=== PATIENT | female | born 1955 | race Caucasian/White ===

== ENCOUNTER 2021-02-13 14:41 | Outpatient (REF) | payer MEDICARE, SELFPAY ==
[2021-02-13 18:38] LABS: MANUAL DIFF FLAG NO
[2021-02-13 18:39] LABS: Basophils Percent Auto 0.3 % (0-2); Eosinophils Absolute Auto 0.1 X10*3/uL (0.0-0.4); Eosinophils Percent Auto 0.9 % (0-4); Imm Gran Abs Auto 0.03 X10*3/uL (0.00-0.03); Imm Gran Pct Auto 0.3 % (0.0-0.4); Lymphocytes Absolute Auto 2.8 X10*3/uL (1.2-4.9); Lymphocytes Percent Auto 31.9 % (20-40); Mean Corpuscular HGB Conc 35.1 g/dl (31.0-35.0); Mean Corpuscular Hemoglobin 38.2 pg (27.0-33.0); Mean Corpuscular Volume 108.8 fL (80-98); Mean Platelet Volume 8.9 fL (9.4-12.3); Monocytes Absolute Auto 0.4 X10*3/uL (0.1-1.2); Neutrophils Absolute Auto 5.4 X10*3/uL (2.0-8.3); Neutrophils Percent Auto 61.6 % (45-73); Platelet Count 376 X10*3/uL (160-400); Red Cell Distribution Width 12.4 % (11.0-16.0); White Blood Count 8.8 X10*3/uL (4.8-10.8)
[2021-02-13 19:03] LABS: Alanine Aminotransferase 19 U/L (0-31); Albumin Level 4.2 g/dL (3.5-5.0); Alkaline Phosphatase 106 U/L (39-117); Anion Gap 15 (12-20); Aspartate Amino Transferase 18 U/L (5-31); Bilirubin Total 0.4 mg/dL (0.0-1.0); Blood Urea Nitrogen 10 mg/dL (9-16); Calcium 9.1 mg/dL (8.4-10.2); Carbon Dioxide 22 mmol/L (22-29); Chloride 105 mmol/L (96-108); Cholesterol 205 mg/dL; Estimated Glomerular Filt Rate > 60; Glucose Random 93 mg/dL (60-115); HDL Cholesterol 71 mg/dL; LDL Cholesterol Calculated 108 mg/dl; Potassium 4.3 mmol/L (3.3-5.1); Sodium 138 mmol/L (135-145); Total Protein 6.9 g/dL (6.5-8.0); Triglycerides 130 mg/dL
== END 2021-02-13 14:42 | disposition home or self-care (01) ==
LOC: HO.MANLDS 14:41
PROVIDERS: PCP Internal Medicine; Visit Provider Physician Assistant
DX: I10 Essential (primary) hypertension (principal)
CPT/HCPCS: 36415; 80053; 80061; 85025

== ENCOUNTER 2021-09-19 09:53 | Outpatient (REF) | payer MEDICARE, SELFPAY ==
[2021-09-19 10:46] LABS: COVID-19 Test Negative (Negative); IDNOW Serial# 16C4AD1C
== END 2021-09-19 09:54 | disposition home or self-care (01) ==
LOC: HO.LAB 09:53
PROVIDERS: Visit Provider Internal Medicine
DX: Z20.822 Contact with and (suspected) exposure to COVID-19 (principal)
CPT/HCPCS: 36415; 87635; C9803

== ENCOUNTER 2023-03-29 15:11 | Outpatient (REF) | payer MEDICARE, SELFPAY ==
[2023-03-29 18:51] LABS: MANUAL DIFF FLAG NO
[2023-03-29 18:54] LABS: Basophils Percent Auto 0.6 % (0-2); Eosinophils Percent Auto 0.6 % (0-4); Hematocrit 41.1 % (37.0-47.0); Hemoglobin 14.2 g/dl (12.0-16.0); Imm Gran Abs Auto 0.02 X10*3/uL (0.00-0.03); Imm Gran Pct Auto 0.4 % (0.0-0.4); Lymphocytes Absolute Auto 1.8 X10*3/uL (1.2-4.9); Lymphocytes Percent Auto 34.9 % (20-40); Mean Corpuscular HGB Conc 34.5 g/dl (31.0-35.0); Mean Corpuscular Hemoglobin 38.2 pg (27.0-33.0); Mean Platelet Volume 9.3 fL (9.4-12.3); Monocytes Absolute Auto 0.4 X10*3/uL (0.1-1.2); Monocytes Percent Auto 8.2 % (2-11); Neutrophils Absolute Auto 2.9 x10*3/uL (2.0-8.3); Neutrophils Percent Auto 55.3 % (45-73); Platelet Count 268 X10*3/uL (160-400); Red Blood Count 3.72 X10*6/uL (4.20-5.50); Red Cell Distribution Width 11.9 % (11.0-16.0); White Blood Count 5.3 X10*3/uL (4.8-10.8)
[2023-03-29 18:55] LABS: Mean Corpuscular Volume 110.5 fL (80.0-98.0)
[2023-03-29 19:02] LABS: Estimated Average Glucose 94 mg/dL; Hemoglobin A1c % 4.9 %
[2023-03-29 19:18] LABS: Alanine Aminotransferase 20 U/L (0-31); Albumin Level 4.1 g/dL (3.5-5.0); Alkaline Phosphatase 82 U/L (39-117); Anion Gap 15 (12-20); Aspartate Amino Transferase 24 U/L (5-31); Bilirubin Total 0.6 mg/dL (0.0-1.0); Blood Urea Nitrogen 12 mg/dL (9-16); Calcium 9.7 mg/dL (8.4-10.2); Carbon Dioxide 23 mmol/L (22-29); Chloride 106 mmol/L (96-108); Estimated Glomerular Filt Rate > 60; Glucose Random 89 mg/dL (60-115); Iron 133 mcg/dL (30-160); Percent Iron Saturation 51 % (15-50); Potassium 4.3 mmol/L (3.3-5.1); Sodium 140 mmol/L (135-145); Total Iron Binding Capacity 262 mcg/dL (228-428); Total Protein 6.9 g/dL (6.5-8.0); Unsaturated Iron Binding 129 ug/dL
[2023-03-29 19:35] LABS: Ferritin 117 ng/mL (10-250)
== END 2023-03-29 15:12 | disposition home or self-care (01) ==
LOC: HO.MANLDS 15:11
PROVIDERS: Visit Provider Physician Assistant
DX: R73.01 Impaired fasting glucose (principal); E61.1 Iron deficiency
CPT/HCPCS: 36415; 80053; 82728; 83036; 83540; 85025

== ENCOUNTER 2024-05-19 14:19 | Outpatient (REF) | payer OTHER, SELFPAY ==
[2024-05-19 17:56] LABS: MANUAL DIFF FLAG NO
[2024-05-19 18:05] LABS: Basophils Percent Auto 0.4 % (0-2); Eosinophils Absolute Auto 0.1 X10*3/uL (0.0-0.4); Eosinophils Percent Auto 1.2 % (0-4); Hematocrit 42.4 % (37.0-47.0); Hemoglobin 15.1 g/dl (12.0-16.0); Imm Gran Abs Auto 0.02 X10*3/uL (0.00-0.03); Imm Gran Pct Auto 0.3 % (0.0-0.4); Lymphocytes Percent Auto 29.5 % (20-40); Mean Corpuscular HGB Conc 35.6 g/dl (31.0-35.0); Mean Corpuscular Hemoglobin 38.1 pg (27.0-33.0); Mean Corpuscular Volume 107.1 fL (80.0-98.0); Mean Platelet Volume 9.3 fL (9.4-12.3); Monocytes Absolute Auto 0.4 X10*3/uL (0.1-1.2); Monocytes Percent Auto 6.6 % (2-11); Neutrophils Absolute Auto 4.2 x10*3/uL (2.0-8.3); Platelet Count 281 X10*3/uL (160-400); Red Blood Count 3.96 X10*6/uL (4.20-5.50); Red Cell Distribution Width 11.4 % (11.0-16.0); White Blood Count 6.7 X10*3/uL (4.8-10.8)
[2024-05-19 18:10] LABS: INTERNATIONAL NORM RATIO 0.8 (0.9-1.1); Prothrombin Time 9.6 SEC (11.1-13.3)
[2024-05-19 18:12] LABS: Partial Thromboplastin Time 29.2 SEC (26.0-36.8)
[2024-05-19 18:25] LABS: Alanine Aminotransferase 33 U/L (0-31); Albumin Level 4.6 g/dL (3.5-5.0); Alkaline Phosphatase 79 U/L (39-117); Anion Gap 14 (12-20); Aspartate Amino Transferase 34 U/L (5-31); Bilirubin Total 0.5 mg/dL (0.0-1.0); Blood Urea Nitrogen 12 mg/dL (9-16); Carbon Dioxide 26 mmol/L (22-29); Chloride 101 mmol/L (96-108); Estimated Glomerular Filt Rate > 60; Glucose Random 95 mg/dL (60-115); Iron 132 mcg/dL (30-160); Percent Iron Saturation 48 % (15-50); Potassium 3.6 mmol/L (3.3-5.1); Sodium 137 mmol/L (135-145); Total Iron Binding Capacity 273 mcg/dL (228-428); Total Protein 7.7 g/dL (6.5-8.0); Unsaturated Iron Binding 141 ug/dL
[2024-05-19 18:42] LABS: Ferritin 169 ng/mL (10-250); Thyroid Stimulating Hormone 3.04 uIU/mL (0.32-4.0)
[2024-05-19 18:54] LABS: Folate 14.1 ng/mL (> or = 4.0); Vitamin B12 666 pg/mL (200-900)
[2024-05-20 06:06] LABS: Parathyroid Hormone Intact 62.1 pg/mL (8.7-77.1)
[2024-05-20 06:53] LABS: Estimated Average Glucose 94 mg/dL; Hemoglobin A1c % 4.9 % (<6.0)
== END 2024-05-19 14:20 | disposition home or self-care (01) ==
LOC: HO.MANLDS 14:19
PROVIDERS: Visit Provider Physician Assistant
DX: R73.01 Impaired fasting glucose (principal); Z78.9 Other specified health status; E61.1 Iron deficiency; M85.80 Other specified disorders of bone density and structure, unspecified site; R53.83 Other fatigue
CPT/HCPCS: 36415; 80053; 82306; 82607; 82728; 82746; 83036; 83540; 83970; 84439; 84443; 85025; 85610; 85730

== ENCOUNTER 2025-08-30 14:42 | Outpatient (REF) | payer OTHER, SELFPAY ==
--- OUTSIDE RECORDS SUMMARY | 2025-08-30 18:01 | XMS_ITS | Encounter Summary ---
Author Organization [facility] Address [address] [address] Phone Care Team Providers Care Leasing Coordinator Name Role Phone Rusty Lutz DO Primary Care Provider Encounter Details Date Type Department Care Team (Late st Contact Info) Description 03/03/2018 Procedure Pass [facility], [address] [address] Social History Tobacco Use Types Packs/Day Years Used Date Smoking Tobacco: Never Assessed Comments Unknown Sex and Gender Information Value Date Recorded Sex Assigned at Not on file Legal Sex Female 9:52 PM EDT Gender Identity Not on file Sexual Orientation Not on file documented as of this encounter Plan of Treatment Not on file documented as of this encounter Visit Diagnoses Not on filedocumented in this encounter Additional Health Concerns Infection Onset Date Last Indicated Resolved Time CoV-Risk 04/29/2020 04/30/2020 04/30/2020 10:3 8 AM EDT CoV-Presumed 04/30/2020 04/30/2020 05/20/2020 1:22 AM EDT documented as of this encounter Care Teams Leasing Coordinator Relationship Specialty Start Date End Date Rusty Lutz DO PCP - General Internal Medicine 02/28/18 documented as of this encounter Additional Source Comments The information contained in this document represents components of the legal health record. It is not the complete legal health record.[facility]
--- OUTSIDE RECORDS SUMMARY | 2025-08-30 18:01 | XMS_ITS | Encounter Summary ---
Author Organization [facility] Address [address] [address] Phone Care Team Providers Care Log Deckman Name Role Phone Bolivar Rusty Olsen Primary Care Provider [phone] Encounter Details Date Type Department Care Team (Late st Contact Info) Description 05/06/2023 Procedure Pass [facility], [facility] Scan - [address] [address] Social History Tobacco Use Types Packs/Day Years Used Date Smoking Tobacco: Every Day Cigarettes Smokeless Tobacco: Never Alcohol Use Standard Drinks/Week Comments Yes 5 (1 standard drink = 0.6 oz pur e alcohol) Education Answer Date Recorded Are you interested in more education? Not on rachell e 01/25/2023 Are you concerned about learning? Not on file 01/25/2023 No 01/25/2023 No 01/25/2023 Digital Access Answer Date Recorded No 02/23/2023 No 02/23/2023 Reliable internet access at home? Not on file 02/23/2023 Device with a working camera? Not on file Intimate Partner Violence Answer Date R ecorded Are you denied basic needs s uch as food, clothing, or medical care? No 05/06/2023 In the past 12 months have y ou been in a relationship with a person who hurts, threatens, or tries to control you? No 05/06/2023 Are you denied basic needs s uch as food, clothing, or medical care? No 05/06/2023 In the past 12 months have y ou been in a relationship with a person who hurts, threatens, or tries to control you? No 05/06/2023 Comments Unknown Sex and Gender Information Value Date Recorded Sex Assigned at Not on file Legal Sex Female 9:52 PM EDT Gender Identity Not on file Sexual Orientation Not on file documented as of this encounter Functional Status * Calculated C-SSRS Risk Score (Lifetime/Recent) Answer Date of Assessment Author No Risk Indicated 05/06/2023 3:31 PM EDT Holly Abad RN * [place] Suicide Severity Rating Scale (Screener/Recent Self-Report) Question Answer Date of Assessment Author 1. Wish to be (Past 1 Month) No 05/06/2023 3:31 PM EDT Holly Abad RN 2. Non-Specific Active Suici monica Thoughts (Past 1 Month) No 05/06/2023 3:31 PM EDT Lidya Abad cia, RN 6. Suicidal Behavior (Lifetime) No 3:31 PM EDT Holly Abad RN documented as of this encounter Plan of Treatment Not on file documented as of this encounter Visit Diagnoses Not on filedocumented in this encounter Care Teams Log Deckman Relationship Specialty Start Date End Date Rusty Lutz DO [email or web address] PCP - General Internal Medicine 02/28/18 documented as of this encounter Additional Source Comments The information contained in this document represents components of the legal health record. It is not the complete legal health record.[facility]
--- OUTSIDE RECORDS SUMMARY | 2025-08-30 18:01 | XMS_ITS | Encounter Summary ---
Author Organization [facility] Address [address] [address] Phone Care Team Providers Care Building Service Worker Name Role Phone Rusty Lutz DO Primary Care Provider [phone] Encounter Details Date Type Department Care Team (Late st Contact Info) Description 04/29/2020 Procedure Pass [facility], Ct Scan - [address] [address] Social History Tobacco Use Types Packs/Day Years Used Date Smoking Tobacco: Every Day Cigarettes Smokeless Tobacco: Never Alcohol Use Standard Drinks/Week Comments Yes 5 (1 standard drink = 0.6 oz pur e alcohol) Comments Unknown Sex and Gender Information Value [...] documented as of this encounter Care Teams Building Service Worker Relationship Specialty Start Date End Date Rusty Lutz DO PCP - General Internal Medicine 02/28/18 documented as of this encounter Additional Source Comments The information contained in this document represents components of the legal health record. It is not the complete legal health record.[facility]
--- OUTSIDE RECORDS SUMMARY | 2025-08-30 18:01 | XMS_ITS | Encounter Summary ---
Author Organization [facility] Address [address] [facility] [address] [place] [id number] Phone Care Team Providers Care Timekeeping Supervisor Name Role Phone Rusty Lutz DO Primary Care Provider [phone] Encounter Details Date Type Department Care Team (Late st Contact Info) Description 03/03/2018 Ancillary Orders Virtual Department [address] [place] [address] Aylin Wellington, ANDREW Crenshaw. [address]. [address] [place] [address] [email or web address] Other specified joint disorders, right hip Social History Tobacco Use Types Packs/Day Years Used Date Smoking Tobacco: Never Assessed Comments Unknown Sex and Gender Information Value Date Recorded Sex Assigned at Not on file Legal Sex Female 9:52 PM EDT Gender Identity Not on file Sexual Orientation Not on file documented as of this encounter Plan of Treatment Not on file documented as of this encounter Results * MRI HIP WITH AND WITHOUT CONTRAST (RIGHT) (03/29/2018 3:36 PM EDT) Anatomical Region Laterality Modality Hip Right Magnetic Resonan ce 03/30/2018 9:40 PM EDT Impressions 03/31/2018 1:41 PM EDT Palpable lump probably represents a focal area of fat necrosis and much less likely an atypical lipoma or liposarcoma. Recommend follow up in 6 months. [id number] Edited by: Tamara Mckeon on 03/31/2018 1:35 PM Narrative 03/31/2018 1:41 PM EDT HISTORY: Patient feels lump in soft tissues near posterolateral right hip x 6 months. Not painful. See skin marker. She has numbness in the right groin area which is not contiguous with the location of the mass. No cancer history. No prior surgery in this region. No known trauma. COMPARISON: None. CORRELATION: None. TECHNIQUE: Multiplanar imaging performed without and with gadolinium. A marker was placed at the site of the palpable lump. FINDINGS: In the soft tissues posterior to the right greater trochanter, there is a bilobed homogeneous fat-containing lesion which has a thin peripheral dark signal rim. It has very dark signal on the STIR sequences and is non enhancing. This probably represents an area of focal fat necrosis and corresponds with the marker placed at the palpable site. Minimal right acetabular spurring with subchondral cystic changes. Mild hip joint space narrowing as well. No joint effusion. Enthesopathy of the greater trochanter at the gluteus minimus attachment with minor edema in the enthesophyte. No prominent trochanteric bursitis. No evidence of an acute fracture, stress-related change, or avascular necrosis. Multiple very dark T2 signal lesions within the uterus compatible with fibroids measuring up to 2.0 cm. Study not tailored for evaluation of uterine and adnexal structures. Trace free fluid in the pelvis. No pelvic lymphadenopathy. Procedure Note Evan Perez MD - 03/31/2018 HISTORY: Patient feels lump in soft tissues near posterolateral right hipx 6 months. Not painful. See skin marker. She has numbness in the rightgroin area which is not contiguous with the location of the mass. Nocancer history. No prior surgery in this region. No known trauma. COMPARISON: None. CORRELATION: None. TECHNIQUE: Multiplanar imaging performed without and with gadolinium. Amarker was placed at the site of the palpable lump. FINDINGS: In the soft tissues posterior to the right greater trochanter, there is abilobed homogeneous fat-containing lesion which has a thin peripheral darksignal rim. It has very dark signal on the STIR sequences and is nonenhancing. This probably represents an area of focal fat necrosis andcorresponds with the marker placed at the palpable site. Minimal right acetabular spurring with subchondral cystic changes. Mildhip joint space narrowing as well. No joint effusion. Enthesopathy ofthe greater trochanter at the gluteus minimus attachment with minor edemain the enthesophyte. No prominent trochanteric bursitis. No evidence ofan acute fracture, stress-related change, or avascular necrosis. Multiple very dark T2 signal lesions within the uterus compatible withfibroids measuring up to 2.0 cm. Study not tailored for evaluation ofuterine and adnexal structures. Trace free fluid in the pelvis. Nopelvic lymphadenopathy. IMPRESSION: Palpable lump probably represents a focal area of fat necrosis and muchless likely an atypical lipoma or liposarcoma. Recommend follow up in 6months. [id number] Edited by: Tamara Mckeon on 03/31/2018 1:35 PM December Eliz MORALES IMG MR EXTREMITY Final Resul t documented in this encounter Visit Diagnoses Diagnosis Other specified joint disorders, right hip Other specified joint disorders, right hip documented in this encounter Additional Health Concerns Infection Onset Date Last Indicated Resolved Time CoV-Risk 04/29/2020 04/30/2020 04/30/2020 10:3 8 AM EDT CoV-Presumed 04/30/2020 04/30/2020 05/20/2020 1:22 AM EDT documented as of this encounter Care Teams Timekeeping Supervisor Relationship Specialty Start Date End Date Rusty Lutz DO [email or web address] PCP - General Internal Medicine 02/28/18 documented as of this encounter Additional Source Comments The information contained in this document represents components of the legal health record. It is not the complete legal health record.[facility]
--- OUTSIDE RECORDS SUMMARY | 2025-08-30 18:01 | XMS_ITS | Encounter Summary ---
Author Organization [facility] Address [address] [place] [id number] Phone Care Team Providers Care Evidence Custodian Name Role Phone Rusty Lutz DO Primary Care Provider [phone] Encounter Details Date Type Department Care Team (Late st Contact Info) Description 03/25/2019 Transcribe Orders Virtual Department [address] [place] [address] Aylin Wellington PA-C [address] [place] [address] [email or web address] Persistent cough Social History Tobacco Use Types Packs/Day Years Used Date Smoking Tobacco: Never Assessed Comments Unknown Sex and Gender Information Value Date Recorded Sex Assigned at Not on file Legal Sex Female 9:52 PM EDT Gender Identity Not on file Sexual Orientation Not on file documented as of this encounter Plan of Treatment Not on file documented as of this encounter Visit Diagnoses Diagnosis Persistent cough documented in this encounter Additional Health Concerns Infection Onset Date Last Indicated Resolved Time CoV-Risk 04/29/2020 04/30/2020 04/30/2020 10:3 8 AM EDT CoV-Presumed 04/30/2020 04/30/2020 05/20/2020 1:22 AM EDT documented as of this encounter Care Teams Evidence Custodian Relationship Specialty Start Date End Date Rusty Lutz DO [email or web address] PCP - General Internal Medicine 02/28/18 documented as of this encounter Additional Source Comments The information contained in this document represents components of the legal health record. It is not the complete legal health record.[facility]
--- OUTSIDE RECORDS SUMMARY | 2025-08-30 18:01 | XMS_ITS | Data Portability ---
Author Organization [facility], Telehealth Patient Home Address [address] [place] [address] Assessment Encounter Date Assessment Date Assessment LastModified by Organization Details LastModified Time 05/12/2025 05/12/2025 Patient presented for medication refill. Patient tolerating medication well at current dose without adverse effects. Refilled as below. Discussed plan with patient, who expressed understanding . Follow up as noted below. [email or web address] Not available 05/12/2025 14:04:01 Plan of Treatment Reminders Order Date Submit Date Provider Last Modified By Organization Details Last Modified Time Details Appointments None recorded. Lab iron + TIBC + ferritin, serum 2024 025 [facility], [address] [place] [address], [address], 14:19:13 CBC w/ auto diff 2024 025 [facility], [address] [place] [address], [address], 5 14:19:13 CMP, serum or plasma 2024 025 [facility], [address] [place] [address], [address], 5 14:19:13 lipid panel, serum 2024 025 [facility], [address] [place] [address], [address], 5 14:19:13 iron + TIBC + ferritin, serum [id number] [facility], [address] [place] [address], [address], 4 14:01:10 PT/PTT, plasma 2023 [facility], [address] [place] [address], [address], 4 14:01:10 PT/INR 2023 [facility], [address] [place] [address], [address], 4 14:01:10 vitamin B12 + folate, serum or blood 2023 [facility], [address] [place] [address], [address], 4 14:01:10 vitamin D, 25-hydroxy , total, serum 2023 [facility], [address] [place] [address], [address], 4 14:01:10 PTH (parathyro id hormone), intact + calcium, serum or plasma 2023 024 [facility], [address] [place] [address], [address], 4 14:01:11 TSH + free T4, serum 2023 024 [facility], [address] [place] [address], [address], 4 14:21:14 hemoglobin A1c, QN, blood 2023 [facility], [address] [place] [address], [address], 4 11:25:11 CMP, serum or plasma 2023 024 [facility], [address] [place] [address], [address], 4 14:01:10 CBC w/ auto diff 2023 024 [facility], [address] [place] [address], [address], 4 14:01:10 hemoglobin A1c, QN, blood 2022 023 [facility], [address] [place] [address], [address], 3 11:32:50 CMP, serum or plasma 2022 023 [facility], [address] [place] [address], [address], 3 11:32:50 iron + TIBC + ferritin, serum 2022 023 [email or web address] 10 [facility], [address] [place] [address], [address], 3 08:02:43 CBC w/ auto diff 2022 023 [facility], [address] [place] [address], [address], 3 11:32:50 HbA1c (hemoglobi n A1c), blood 2021 022 [facility], [address] [place] [address], [address], 2 14:50:46 CMP, serum or plasma 2021 022 [email or web address] 10 [facility], [address] [place] [address], [address], 2 11:35:37 lipid panel, serum 2021 022 [facility], [address] [facility], [place], [address], 2 14:50:45 CBC w/ auto diff 2021 022 [facility], [address] [facility], [place], [address], 2 14:50:45 Referral neurologis t referral 2022 023 [email or web address] Hayes MD, [address] [facility] [address] [address], [place], [address], 3 15:44:17 Procedures None recorded. Surgeries None recorded. Imaging MR, angiogram, head, w/o contrast - needs recheck her aneurysm; open MRI 2023 024 [email or web address] Not available 4 08:35:10 MR, angiogram, brain, w/ contrast - OPEN 2022 023 [email or web address] Not available 3 08:03:24 Medication Orders ibuprofen 600 mg tablet 2024 025 [facility]/Pharmacy #2024, [address] [place], [address], 5 14:08:22 Tiadylt ER 180 mg capsule,ex tended release 2024 025 [facility]/Pharmacy #2024, [address] [place], [address], 5 14:08:22 mirtazapin e 7.5 mg tablet 2023 024 [facility]/Pharmacy #2024, [address] [place], [address], 5 14:05:44 escitalopr am 5 mg tablet 2023 024 [email or web address] [facility]2024, [address] [place], [address], 14:40:23 citalopram 40 mg tablet 2022 023 [email or web address] [facility], [address] [place], [address], 13:53:01 baclofen 5 mg tablet 2021 022 [email or web address] [facility]2024, [address] [place], [address], 13:30:24 Patient TargetsNo targets recorded. Patient Instructions Encounter Date Encounter Id Patient Instructions Last Modified By Organization Details Last Modified Time 04/27/2022 [id number] pulse oximetry* [email or web address] Not available 04/27/2022 14:42:47 Reason for Referral Neurologist Referral for Tra umatic brain injury MRA ordered; hospital report attached and will be faxed separately Referring Physician: Karyn Cano, Internal Medicine, Encounter Date: 05/21/2023 Results Created Date Observation Date Name Description Value Unit Range Abnormal Flag Note LastModifiedBy Organization Detail LastModifiedTime 04/27/2004/27/2022 pulse oxime try* Result 93 Not Available [facility] [address] [facility] [address], [place], [address], 04/27/2022 08:21:14 06/30/20 24 06/30/2024 MR, angio gram, head, w/o contr ast No observ ation record ed. [email or web address] [address], [address], 07/01/2024 15:05:57 Result Notes None recorded. Problems Name Problem SNOMED Code Status Onset Date Resolution Date Notes Provider Name and Address Organization Details Recorded Time Osteopamy ia 453927733 Active 2017 Not Available [facility] 13:48:36 Emre molina hypertamy torres 58858730 Active 2017 Not Available [facility] 1 13:48:36 Iron deficien cy 19145287 Active 2017 sever- requiring transfusi ons (rosalino ) Not Available [facility] 1 13:48:36 Chronic obstruct joceline pulmonar y disease 55873175 Active 2017 Not Available [facility] 1 13:48:36 Mass of neck 735741774 Active 2017 Not Available [facility] 1 13:48:36 Gastroes ophageal reflux disease 471659921 Active 2017 Not Available [facility] 1 13:48:36 Impaired fasting glycemia 858119210 Active 2017 Not Available [facility] 1 13:48:36 Anxiety 60594952 Active 2017 Not Available [facility] 1 13:48:36 History of depressi on 095471994 Active 2017 Not Available [facility] 1 13:48:36 Insomnia 627928785 Active 2017 Not Available [facility] 1 13:48:36 Menopaus e Active 2017 post Not Available [facility] 1 13:48:36 Gingivit is 10850256 Active 2017 Not Available [facility] 1 13:48:36 Dental caries 42074581 Active 2017 Not Available [facility] 1 13:48:36 History of alcohol abuse 954350068 Active 2017 past dependenc e Not Available [facility] 1 13:48:36 Cramp in lower limb 542881156 Active 2021 SHAWNA GENTILE [address] [place], [address], [facility] 2 14:40:01 Normal grief reaction 574162685 Active 2022 SHAWNA GENTILE [address] [place], [address], [facility] 3 15:07:09 Traumati c brain injury 132426283 Active 2022 SHAWNA GENTILE [address] [place] [address], [address], [facility] 3 11:42:20 Depressi ve disorder 75202776 Active 2023 SHAWNA GENTILE [address] [place] [address], [address], [facility] 4 13:50:38 Loss of appetite 05550425 Active 2023 SHAWNA GENTILE [address] [place] [address], [address], [facility] 4 13:52:10 Easy bruising 117312235 Active 2023 SHAWNA GENTILE [address] [place] [address], [address], [facility] 4 13:57:16 Fatigue 02705472 Active 2023 SHAWNA GENTILE [address] [place] [address], [address], [facility] 4 14:00:13 Intracra nial aneurysm 722163981 Active 2023 SHAWNA GENTILE [address] [place] [address], [address], [facility] 4 14:08:08 Gastric reflux 888210217 Active 2024 Rusty Lutz, [address] [place] [address], [address], [facility] 5 12:45:51 Cigarett e smoker 39544036 Active 2024 SHAWNA GENTILE [address] [place] [address], [address], [facility] 5 14:07:00 Notes:Some problems listed i n Documents: #[id number], #[id number] could not be added to this patient's chart. Please review these documents and add these problems to the patient's chart manually as needed. Problem Notes None recorded. Medical Equipment None Reported. Allergies Allergen ID Allergen Name Allergen Category Reaction Reaction Severity Criticality Documentation Date Start Date Code Code System Note Provider Name and Address Organization Details Recorded Time 1441 Tylox medicatio n Not available Not available Not available 02/19/201819700 5 RxNorm Pre[facility]na latif [place] [facility] 8 12:30:28 Medications Name Sig Start Date Stop Date Status Note LastModified by Organization Details LastModified Time amoxicillin 500 mg capsule TAKE 1 CAPSULE BY MOUTH EVERY 8 HOURS FOR 5 DAYS 04/01 completed Not Available Not Available Not Available citalopram 40 mg tablet TAKE 1 TABLET BY MOUTH EVERY DAY 2024 active Not Available Not Available Not Avai lable trazodone 50 mg tablet TAKE 1 TABLET BY MOUTH EVERY DAY 05/21 completed Not Available Not Available Not Available diltiazem CD 240 mg capsule,ext ended release 24 hr TAKE 1 CAPSULE BY MOUTH EVERY DAY 05/09 completed Not Available Not Available Not Available lisinopril 20 mg tablet TAKE 1 TABLET BY MOUTH EVERY DAY 05/09 completed Not Available Not Available Not Available prednisone 20 mg tablet 04/01 completed Not Available Not Available Not Available thiamine HCl (vitamin B1) 100 mg/mL injection solution Take by injection route. 05/21 completed Not Available Not Available Not Available amoxicillin 875 mg tablet Take 1 tablet every 12 hours by oral route for 10 days. 09/08 completed Not Available Not Available Not Available vitamin-jennifer jennifer fumarate 28 mg iron-folic acid 800 mcg tablet Take 1 tablet by oral route. 2019 active Not Available Not Available Not Avai lable omeprazole 20 mg capsule,del ayed release TAKE 1 CAPSULE BY MOUTH EVERY DAY 2024 active Not Available Not Available Not Avai lable folic acid 1 mg tablet Take 1 tablet every day by oral route. 05/21 completed Not Available Not Available Not Available ibuprofen 600 mg tablet TAKE 1 TABLET BY MOUTH THREE TIMES A DAY NEEDED WITH FOOD active Not Available Not Available No t Available cefuroxime axetil 500 mg tablet 08/15 completed Not Available Not Available Not Available albuterol sulfate HFA 90 mcg/actuati on aerosol inhaler 04/01 completed Not Available Not Available Not Available Vitamin B-1 100 mg tablet TAKE 1 TABLET BY MOUTH EVERY DAY 05/21 completed Not Available Not Available Not Available diazepam 5 mg tablet take 1 tablet by mouth at bedtime if needed 05/09 completed Not Available Not Available Not Available Vitamin 27 mg iron-0.8 mg tablet TAKE 1 TABLET BY MOUTH EVERY DAY 05/12 completed Not Available Not Available Not Available escitalopra m 5 mg tablet TAKE 1 TABLET BY MOUTH EVERY DAY 07/08 completed Not Available Not Available Not Available mirtazapine 7.5 mg tablet TAKE 1 TABLET BY MOUTH EVERY DAY 05/12 completed Not Available Not Available Not Available DILT-XR 180 mg capsule, extended release 05/27 completed Not Available Not Available Not Available Combivent Respimat 20 mcg-100 mcg/actuati on solution for inhalation active Not Available Not Available N ot Available ipratropium 20 mcg-albuter ol 100 mcg/actuati on aerosol inhaler Inhale by inhalatio n route. active Not Available Not Available No t Available Lactobacill us acidophilus 10 billion cell capsule Take by oral route. 05/21 completed Not Available Not Available Not Available guaifenesin ER 600 mg tablet, extended release 12 hr Take 1 tablet every 12 hours by oral route. 04/01 completed Not Available Not Available Not Available vitamins no.121-iron 28 mg-folic acid 800 mcg tablet Take by oral route. active Not Available Not Available No t Available baclofen 5 mg tablet TAKE 1 TABLET BY MOUTH TWICE A DAY NEEDED FOR 14 DAYS 04/01 completed Not Available Not Available Not Available albuterol sulf 90 mcg/actuati on breath activated powder inhaler,sen sor Inhale 2 puffs every 4 hours by inhalatio n route. active Not Available Not Available No t Available Tiadylt ER 180 mg capsule,ext ended release TAKE 1 CAPSULE BY MOUTH EVERY DAY active Not Available Not Available No t Available Vitals Date Recorded Body height Body mass index (BMI) Body weight Heart rate Oxygen saturation Systolic And Diastolic Provider Name and Address Organization Details Last Updated DateTime 3 148.59 cm 21.6 kg/m2 23987.2 g 71 /min 96 % 128/78 mm[Hg] Juanita Mares [place] - [facility] 3 14:50:26 Date Recorded Body height Body mass index (BMI) Body weight Heart rate Oxygen saturation Systolic And Diastolic Provider Name and Address Organization Details Last Updated DateTime 2 148.59 cm 21.7 kg/m2 57593.6 4 g 79 /min 93 % 100/60 mm[Hg] SHAWNA GENTILE [address] [place], [address] 2 14:35:36 Date Recorded Body height Body mass index (BMI) Body weight Heart rate Oxygen saturation Systolic And Diastolic Provider Name and Address Organization Details Last Updated DateTime 5 148.59 cm 16.5 kg/m2 97663.8 3 g 77 /min 92 % 134/86 mm[Hg] Kirti Osborn [facility] 5 13:53:02 Date Recorded Body height Body mass index (BMI) Body weight Heart rate Oxygen saturation Systolic And Diastolic Provider Name and Address Organization Details Last Updated DateTime 4 148.59 cm 16.1 kg/m2 49819.3 6 g 75 /min 97 % 128/86 mm[Hg] Kirti Osborn [facility] 4 13:40:41 Date Recorded Body height Body mass index (BMI) Body weight Heart rate Oxygen saturation Systolic And Diastolic Provider Name and Address Organization Details Last Updated DateTime 3 148.59 cm 17.2 kg/m2 58063.3 2 g 65 /min 99 % 132/72 mm[Hg] SHAWNA GENTILE [address] [place], [address] 3 11:32:07 Social History Question Answer Notes LastModified by Organizat ion Details LastModified Time Tobacco Smoking Status Current Every [facility] 02/21/2018 14:13:40 What Was The Date Of Your Most Recent Tobacco Screening? 05/12/2025 [email or web address] Information not available 05/12/2025 How Much Tobacco Do You Smoke? 0.5 PPD Information not available 04/27/2022 Sex: Unknown Functional Status Question Answer Note LastModified by Organization D etails LastModified Time Do you or have you ever used any other forms of tobacco or nicotine? No Information not available 04/27/2022 Mental Status None recorded. Family History Nothing Reported. Medical History No medical history recorded. Gynecological HistoryNo gynecological history recorded. Obstetrics History GPAL:G 0 P 0 0 0 0 Immunizations Vaccine Type Date Status Note Provider Nam e and Address Organization Details Recorded Time COVID-19, mRNA, LNP-S, PF, 30 mcg/0.3 mL dose 09/14/2021 completed Not Available [facility] 3 02:52:31 COVID-19 vaccine, vector-nr, rS-Ad26, PF, 0.5 mL 01/14/2021 completed Not Available [facility] 3 02:52:31 COVID-19 vaccine, vector-nr, rS-Ad26, PF, 0.5 mL 02/04/2021 completed Not Available [facility] 3 02:52:31 Past Encounters Encounter ID Performer Location Encounter Start Date Encounter Closed Date Diagnosis/Indication Diagnosis SNOMED-CT Code Diagnosis ICD10 Code Diagnosis IMO Codes Diagnosis Note [id number] Rusty Lutz [facility] [address] [facility], [place] [address] 02/21/2018 14:05:04 02/21/2018 14:48:05 Gingivitis 48059300 K05.10 strongly encouraged to seek dental care Fatigue 78703810 R53.83 Iron defic iency anemia 76118694 D50.9 Chronic ob structive pulmonary disease 13318003 J44.9 Mass of ri ght hip joint 0127620414 2428653 M25.851 plan to bone scan if xr is noninforma tive Abnormal weight loss 267 148808 R63.4 ? 2/2 poor dentition vs malig will monitor weight after antibiotic labs as above [id number] Rusty Lutz DO [facility] [address] [facility], [place] [address] 09/08/2018 14:14:34 09/08/2018 15:58:30 Impaired fasting glycemia 849617554 R73.01 will recheck labs Essential hypertension 33608900 I10 well controlled with lisin + dilt Chronic ob structive pulmonary disease 69299904 J44.9 continues to smoke doesn't take anything for it states no one ever told her she has this she reports last bronchitis was 4 years ago she does get sob with long distance walking Insomnia 763792639 G47.0 0 takes diazepam if needed Anxiety 91305894 F41.9 on citalopram with good relief Mass of ri ght hip joint 7906164597 5514645 M25.851 no pain in the hip, mass is still there, but reports no change never went for bx as recommende d too much was going on agrees to have repeat of the MRI for any imaging changes Screening procedure 2012 5006 Z13.9 Tobacco user 868011810 Z 72.0 contemplat joceline smokes about a pack per day at this has smoked for over 50 years started age [age] encouraged once again to quit Osteoarthritis 594937875 M19.90 takes ibuprofen 3-4 times per week if needed Gastroesop hageal reflux disease 556857579 K21.9 takes omeprazole every day with good relief also has hiatal hernia Anemia 644731923 D64.9 she cscope about 3 years ago but no blood was seen. she ended up seeing dr. jerry and was determined she was just anemic. Abnormal weight loss 267 562222 R63.4 most likely 2/2 poor dentition, and excess alcohol use will check labs above only other concerning finding is the mass of the right hip, though last MRI was more likely suggestive of fat necrosis, will repeat MRI for further imaging surveillan ce, may consider pursuing bx again pending mri results cscope is UTD nad nomal last pap was 2014 and was normal, will schedule again refuses mammo, has never had breast exam today essentialy normal pt understand s the limitation s of the breast exam vs mammo Harmful pa ttern of use of alcohol 84852585 F10.10 has been advised this is likely leading to weight loss quitting has been recommende d [id number] DO [facility] [address] [facility],[place] [address] 03/25/2019 11:34:14 03/25/2019 13:48:02 Chronic obstructive pulmonary disease 40571182 J44.9 continues to smoke, has cut back due to cost, not ready to quit yet, says maybe eventually doesn't take anything for it has chronic cough Gastroesop hageal reflux disease 280011855 K21.9 takes omeprazole every day with good relief also has hiatal hernia Impaired f asting glycemia 192828878 R73.01 will recheck labs Essential hypertension 44174577 I10 well controlled with lisin + dilt History of depression 16 0942933 Z86.59 on citalopram Chronic cough 04458704 R 05 Unintentio nal weight loss 115739422 R63.4 eats one meal a day has bad teeth for years which give her trouble with eating Vitamin D deficiency 347 33999 E55.9 Harmful pa ttern of use of alcohol 40717441 F10.10 drinks about 5 beers a night [id number] Rusty Lutz DO [facility] Internal Medicine [address] [facility],[place] [address] 04/29/2020 14:32:23 04/29/2020 15:22:32 Essential hypertension 48909867 I10 BP is 90/60 which is concerning ly low on exam her HR is up to 100 bpm Impaired f asting glycemia 976368060 R73.01 has not had labs done since last visit last year Chronic ob structive pulmonary disease 29668979 J44.9 worsening with exertion patient is panting at rest trying to get in air SENT TO ER BY AMBULANCE [id number] Rusty Lutz DO [facility] Internal Medicine [address] [facility], [employer] [facility] [place] [address] 05/27/2020 15:08:41 05/27/2020 16:01:52 Chronic obstructive pulmonary disease 49661182 J44.9 stable per patient, uses combivent every day 4 x per day with great benefit Essential hypertension 98815715 I10 BP is stable per patient and last read at hospital Anxiety 64352937 F41.9 stable History of alcohol abuse 664729916 F10.10 still drinking, is taking proper vitamins though to help with malnutriti on due to alcoholism told to cut back and drink more fluids Iron deficiency 24150297 E61.1 will monitor through [facility], but is on supplement [id number] Rusty Lutz DO [facility] [address] [facility] [address] [address] 02/13/2021 14:06:36 02/14/2021 08:19:13 Chronic obstructive pulmonary disease 27125601 J44.9 stable per patient, uses combivent every day 4 x per day with great benefit Insomnia 402296854 G47.0 0 will trial trazodone to see if it helps Essential hypertension 88619860 I10 BP is stable Underweight 224356889 R6 3.6 weight is getting up which is excellent still need to work on eating throughout the day and not all at once [id number] Rusty Lutz [facility] [address] [facility],[place] [address] 04/27/2022 14:28:39 04/27/2022 16:21:55 Chronic obstructive pulmonary disease 30048039 J44.9 stable per patient, uses combivent every day 4 x per day with great benefit Essential hypertension 49151303 I10 BP is stable Impaired f asting glycemia 310800208 R73.01 has not had labs done since last visit last year Active or passive immunization 977457242 Z23 patient advised she is due for tdap & shingles Cramp in lower limb 4499 05102 R25.2 will give her a trial of baclofen [id number] Rusty Lutz [facility] [address] [facility],[place] [address] 03/29/2023 14:19:17 03/29/2023 15:40:04 Anxiety 38921858 F41.1 stable Chronic ob structive pulmonary disease 93117285 J41.0 stable per patient, uses combivent every day 4 x per day with great benefit Essential hypertension 46345636 I10 BP is stable Impaired f asting glycemia 112222382 R73.01 has not had labs done since last visit last year Iron deficiency 98317033 E61.1 will monitor through [facility], but is on supplement Normal grief reaction 27 5304031 F43.21 discussed mood [id number] [facility] [address] [facility] [address] [address] 05/21/2023 10:58:27 05/21/2023 13:56:49 Anxiety 79012762 F41.1 stable Essential hypertension 51534929 I10 BP is stable Impaired f asting glycemia 554869909 R73.01 stable Traumatic brain injury 687934902 S06.890A will set up with need MRA ordered need fax [phone] hayes or dr. Ambriz, at [address] [place] [address] office Fall [id number] orders put in todayMRA ordered STAT [id number] Rusty Lutz [facility] [address] [facility],Kidd itjemal Contreras [facility] [place] [address] 05/19/2024 13:33:08 05/19/2024 14:52:14 Renewal of prescription 552293128 Z76.0 stable Depression screening 171 621120 Z13.31 discussed mood, switching out anti depressant Chronic ob structive pulmonary disease 52010845 J44.9 stable per patient, uses combivent every day 4 x per day with great benefit Depressive disorder 3548 9007 F32.0 will switch out from the celexa to lexapro Loss of appetite 4719139 6 R63.0 trial mirtazapin e Impaired f asting glycemia 980560237 R73.01 stable Easy bruising 274478360 Z78.9 will check levels Iron deficiency 28750036 E61.1 will monitor through [facility], but is on supplement Osteopenia 682134893 M85 .80 needs recheck Essential hypertension 49628908 I10 BP is stable Fatigue 04620049 R53.83 will set up with recheck thyroid leve Intracranial aneurysm 12 4673645 I67.1 [id number] Rusty Lutz [facility] [address] [facility] [place] [place] [address] 05/12/2025 13:43:33 05/12/2025 16:08:46 Depression screening 027787737 Z13.31 discussed mood, switching out anti depressant Renewal of prescription 823321490 Z76.0 stable Loss of appetite 9680634 6 R63.0 trial mirtazapin e Depressive disorder 3548 9007 F32.0 will switch out from the celexa to lexapro History of alcohol abuse 793693914 F10.10 Essential hypertension 80569390 I10 BP is stable Iron deficiency 21706782 E61.1 will monitor through [facility], but is on supplement Osteoarthritis 358518805 M19.90 Cigarette smoker 7743726 7 F17.210 [id number] Health Concerns Section Related Observation LastModified by Organization Detai ls LastModified Time None Recorded Concern Status LastModified by Organization Details LastModified Time None Recorded Advance Directives Directive None Recorded Payers Insurance Date Sequence Insurance Name Policy Number Policy Cooper Covered Member ID Cooper Member ID Guarantor Name 05/19/2024 1 [place] [employer] Joel L Presley [id number] Joel L Presley 05/19/2024 1 [place] PRIOR TO 2022 - [facility] (MEDICAID) Joel Presley [id number] Joel L Presley 05/19/2024 2 [place] [facility] Joel Presley [id number] Joel L Presley 05/19/2024 1 [facility] [id number] Joel L L Presley [id number] Joel L Presley 05/19/2024 2 [place] [facility] Joel L Presley [id number] Joel L Presley 05/12/2025 1 [facility] (MEDICARE REPLACEMENT /ADVANTAGE - PPO) [id number] Joel L Presley [id number] Joel L Presley Notes Date Note Type Note Provider Name a nd Address Organization Details Recorded Time 2 text/html ROS as noted in the HPI f/u COPD COPD: stable, the patient has but down her smoking, only smoking 5 cigarettes per day sometimes 8 but never morestates that her lungs are feeling much better, no new symptoms or nighttime symptoms HTN: today in the office the patient BP is 100/60 L arm sitting the patient is doing well on the BP medication with no side effects and no adjustment of their medications needed today at the appointment well-controlled on medication denies chest pain, sob, ankle swelling, orthopnea, palpitations cramping: reports her legs are cramping up when she walks for a long timewill trial PRN MSK relaxer, told her to add mag supplements as well SHAWNA GENTILE [address] [place], [address], [facility] 04/27/2022 14:51:14 3 text/html ROS as noted in the HPI f/u medication check HTN: today in the office the patient BP is 128/78 L arm sittingthe patient is doing well on the BP medication with no side effects and no adjustment of their medications needed today at the appointmentwell-cont rolled on medicationdenies chest pain, sob, ankle swelling, orthopnea, palpitations iron def needs recheck overdue for recheck needs a redraw of her CMP and A1c the patient has no serious concerns todaydealing with the loss of her , normal grief reaction down to 88.2 pounds on scale todayknow she has to start eating more SHAWNA GENTILE [address] [place], [address], [facility] 03/29/2023 15:07:38 3 text/html ROS as noted in the HPI ER f/u the patient reports that she fell over her cat and ended up in the ERincidentally found an aneurysm in her head with the CTis now being filled out the patient reports that she is doing okaybruising is improvingvision is clearno headachesno dizziness the wound on her L hand is healing okay some fluid build up around her right hip but nothing severe good judgement, Aox3no syncopal episodes SHAWNA GENTILE [address] [place], [address], [facility] 05/21/2023 11:55:03 4 text/html ROS as noted in the HPI COPD: stable depression disorder: the patient isn't doing well on the celexawill switch out to lexapro after discussion will start on mirtazapinefor the weight gain impaired fasting sugarwill set up with lab work SHAWNA GENTILE [address] [place], [address], [facility] 05/19/2024 14:12:17 5 text/html ROS as noted in the HPI medication f/u the patient is doing okayshe is having issues with eating, she has a very small appetitethe patient reports if she eats a normal serving it causes stomach pain, probably due to the under distension of her stomach from the lack of food encouraged using ensure protein shakes at least 3 times per day didn't try the mirtazapine, worried about the side effects the patient reports that she has some joint pain, usually tolerable, worse with going up stairsthe patient doing well on her celexa, no change recommended at this time the patient is smoking a pack a daythe patient is working cutting back onPodPoster assistance with patch or gum SHAWNA GENTILE [address] [place] [address], [place], [address], [facility] 05/12/2025 14:11:55 OBGyn Episode No OBEpisode recorded.
--- OUTSIDE RECORDS SUMMARY | 2025-08-30 18:01 | XMS_ITS | Encounter Summary ---
Author Organization [facility] Address [address] [place] [address] Phone Care Team Providers Care Education Manager Name Role Phone Bolivar Rusty Olsen Primary Care Provider [phone] Encounter Details Date Type Department Care Team (Late st Contact Info) Description 05/19/2024 Procedure Pass [facility], [address] [address] Social History Tobacco Use Types Packs/Day Years [...] on filedocumented in this encounter Care Teams Education Manager Relationship Specialty Start Date End Date Rusty Lutz DO [email or web address] PCP - General Internal Medicine 02/28/18 documented as of this encounter Additional Source Comments The information contained in this document represents components of the legal health record. It is not the complete legal health record.[facility]
--- OUTSIDE RECORDS SUMMARY | 2025-08-30 18:01 | XMS_ITS | Encounter Summary ---
Author Organization [facility] Address [address] [place] [address] [place] [address] Phone Care Team Providers Care Strategic Client Executive Name Role Phone Rusty Lutz DO Primary Care Provider [phone] Encounter Details Date Type Department Care Team (Latest Contact Info) Description 03/04/2018 Transcribe Orders [facility] Specimen Processing [address] [place] [address] Aylin Wellington PA-C [address] [place] [address] [email or web address] Hypothyroidism, unspecified type (Primary Dx) Social History Tobacco Use Types Packs/Day Years Used Date Smoking Tobacco: Never Assessed Comments Unknown Sex and Gender Information Value Date Recorded Sex Assigned at Not on file Legal Sex Female 9:52 PM EDT Gender Identity Not on file Sexual Orientation Not on file documented as of this encounter Plan of Treatment Not on file documented as of this encounter Procedures Procedure Name Priority Date/Time Associated Diagnosis Comments LAB ADD ON Routine 03/04/2018 10:05 AM EDT Hypothyroidism, unspecified type documented in this encounter Results * Lab Add On: FREE T 4 (03/04/2018 10:05 AM EDT) CONTACT INFORMATION [id number] [facility] TEST REQUESTED FREE T 4 [facility] Comments (Chemistry) UNABLE TO ADD TEST TO AN EXISTING SPECIMEN [facility] Comment: (NOTE) Called and notified to Dr.April Wellington's office. 03/04/2018 10:0 5 AM EDT 03/04/2018 11:28 AM EDT December Eliz MORALES LAB BLOOD ORDERABLES Final R esult [address] [address] documented in this encounter Visit Diagnoses Diagnosis Hypothyroidism, unspecified type- Primary documented in this encounter Additional Health Concerns Infection Onset Date Last Indicated Resolved Time CoV-Risk 04/29/2020 04/30/2020 04/30/2020 10:3 8 AM EDT CoV-Presumed 04/30/2020 04/30/2020 05/20/2020 1:22 AM EDT documented as of this encounter Care Teams Strategic Client Executive Relationship Specialty Start Date End Date Rusty Lutz DO [email or web address] PCP - General Internal Medicine 02/28/18 documented as of this encounter Additional Source Comments The information contained in this document represents components of the legal health record. It is not the complete legal health record.[facility]
--- OUTSIDE RECORDS SUMMARY | 2025-08-30 18:01 | XMS_ITS | Encounter Summary ---
Author Organization [facility] Address [address] [address] Phone Care Team Providers Care Computer Technology Teacher Name Role Phone Bolivar Rusty Olsen Primary Care Provider [phone] Encounter Details Date Type Department Care Team (Late st Contact Info) Description 05/06/2023 Procedure Pass [facility], Ct Scan - [address] [address] Social History Tobacco Use Types Packs/Day Years [...] 3:31 PM EDT Holly Abad RN * [place] Suicide Severity Rating Scale (Screener/Recent Self-Report) Question [...] on filedocumented in this encounter Care Teams Computer Technology Teacher Relationship Specialty Start Date End Date Rusty Lutz DO [email or web address] PCP - General Internal Medicine 02/28/18 documented as of this encounter Additional Source Comments The information contained in this document represents components of the legal health record. It is not the complete legal health record.[facility]
--- OUTSIDE RECORDS SUMMARY | 2025-08-30 18:01 | XMS_ITS | Encounter Summary ---
Author Organization [facility] Address [address] [place] [address] Phone Care Team Providers Care Information Scientist Name Role Phone Rusty Lutz Primary Care Provider [phone] Encounter Details Date Type Department Care Team (Latest Contact Info) Description 02/28/2018 Transcribe Orders [facility] Phleb Main [address] [place] [address] Aylin Wellington, ANDREW [address] [place] [address] [email or web address] Iron deficiency anemia, unspecified iron deficiency anemia type (Primary Dx) Social History Tobacco Use [...] documented as of this encounter Results * Thyroglobulin antibodies (02/28/2018 4:24 PM EDT) THYROGLOBULIN ANTIBODY, S <1.8 <4.0 IU/mL [facility] Comment: (NOTE) ADDITIONAL INFORMATION The thyroglobulin antibody testing method is an immunoenzymatic assay manufactured by [employer] and performed on the [employer] DXI 800. Values obtained from different assay methods or kits may be different and cannot be used interchangeably. The results cannot be interpreted as absolute evidence for the presence or absence of malignant disease. Blood 02/28/2018 4:24 PM EDT 02/28/2018 4:29 PM EDT December [facility] LAB BLOOD ORDERABLES Final R [facility] Performing Organization Address [facility] Co de Phone Number [facility]PATH [address] [place] [address] * Thyroid autoantibodies profile (02/28/2018 4:24 PM EDT) THYROPEROXIDASE AB, S 0.6 <9.0 IU/mL [facility]/PATH [facility] THYROGLOBULIN ANTIBODY, S <1.8 <4.0 IU/mL [facility]/PATH [facility] Comment: (NOTE) ADDITIONAL INFORMATION The thyroglobulin antibody testing method is an immunoenzymatic assay manufactured by [employer] and performed on the [employer] DXI 800. Values obtained from different assay methods or kits may be different and cannot be used interchangeably. The results cannot be interpreted as absolute evidence for the presence or absence of malignant disease. Blood 02/28/2018 4:24 PM EDT 02/28/2018 4:30 PM EDT December [facility] LAB BLOOD ORDERABLES Final R esult Performing Organization Address [facility] Co de Phone Number [facility]/PATH [address] [address] * TSH with reflex (02/28/2018 4:24 PM EDT) TSH 2.48 0.27 - 4.20 uIU/mL [facility] Blood 02/28/2018 4:24 PM EDT 02/28/2018 4:30 PM EDT December Eliz PA-C LAB BLOOD BKR ORDERABLES Fin al Result [facility] [address] [place] [address] documented in this encounter Visit Diagnoses Diagnosis Iron deficiency anemia, unspecified iron deficiency anemia type- Primary documented in this encounter Additional Health Concerns Infection Onset Date Last Indicated Resolved Time CoV-Risk 04/29/2020 04/30/2020 04/30/2020 10:3 8 AM EDT CoV-Presumed 04/30/2020 04/30/2020 05/20/2020 1:22 AM EDT documented as of this encounter Care Teams Information Scientist Relationship Specialty Start Date End Date Rusty Lutz DO [email or web address] PCP - General Internal Medicine 02/28/18 documented as of this encounter Additional Source Comments The information contained in this document represents components of the legal health record. It is not the complete legal health record.[facility]
--- OUTSIDE RECORDS SUMMARY | 2025-08-30 18:01 | XMS_ITS | Encounter Summary ---
Author Organization [facility] Address [address] [address] Phone Care Team Providers Care Philosophy Faculty Member Name Role Phone Bolivar Rusty Olsen Primary Care Provider [phone] Encounter Details Date Type Department Care Team (Late st Contact Info) Description 05/06/2023 Procedure Pass [facility], Ct Scan - [address] [address] Social History Tobacco Use Types Packs/Day Years [...] 3:31 PM EDT Holly Abad RN * [place] Suicide Severity Rating Scale (Screener/Recent Self-Report) Question [...] on filedocumented in this encounter Care Teams Philosophy Faculty Member Relationship Specialty Start Date End Date Rusty Lutz DO [email or web address] PCP - General Internal Medicine 02/28/18 documented as of this encounter Additional Source Comments The information contained in this document represents components of the legal health record. It is not the complete legal health record.[facility]
--- OUTSIDE RECORDS SUMMARY | 2025-08-30 18:01 | XMS_ITS | Encounter Summary ---
Author Organization [facility] Address [address] [place] [address] Phone Care Team Providers Care Loss Prevention Operations Manager Name Role Phone Rusty Lutz DO Primary Care Provider [phone] Encounter Details Date Type Department Care Team (Late st Contact Info) Description 09/08/2018 Ancillary Orders Virtual Department [address] [place] [address] Aylin Wellington PA-C [address] [place] [address] [email or web address] Mass of joint of right hip; Other specified joint disorders, right hip Social [...] as of this encounter Visit Diagnoses Diagnosis Mass of joint of right hip Other specified joint disorders, right hip documented in this encounter Additional Health Concerns Infection Onset Date Last Indicated Resolved Time CoV-Risk 04/29/2020 04/30/2020 04/30/2020 10:3 8 AM EDT CoV-Presumed 04/30/2020 04/30/2020 05/20/2020 1:22 AM EDT documented as of this encounter Care Teams Loss Prevention Operations Manager Relationship Specialty Start Date End Date Rusty Lutz DO PCP - General Internal Medicine 02/28/18 documented as of this encounter Additional Source Comments The information contained in this document represents components of the legal health record. It is not the complete legal health record.[facility]
--- OUTSIDE RECORDS SUMMARY | 2025-08-30 18:01 | XMS_ITS | Encounter Summary ---
Author Organization [facility] Address [address] [address] Phone Care Team Providers Care Iron Miner Name Role Phone Bolivar Rusty Olsen Primary Care Provider [phone] Encounter Details Date Type Department Care Team (Late st Contact Info) Description 05/06/2023 Procedure Pass [facility], Ct Scan - [address] [address] Social History Tobacco Use Types Packs/Day Years [...] 3:31 PM EDT Holly Abad RN * [place] Suicide Severity Rating Scale (Screener/Recent Self-Report) Question [...] on filedocumented in this encounter Care Teams Iron Miner Relationship Specialty Start Date End Date Rusty Lutz DO [email or web address] PCP - General Internal Medicine 02/28/18 documented as of this encounter Additional Source Comments The information contained in this document represents components of the legal health record. It is not the complete legal health record.[facility]
--- OUTSIDE RECORDS SUMMARY | 2025-08-30 18:01 | XMS_ITS | Encounter Summary ---
Author Organization [facility] Address [address] [facility] [address] [place] [address] Phone Care Team Providers Care Advice Nurse Name Role Phone Rusty Lutz DO Primary Care Provider [phone] Encounter Details Date Type Department Care Team (Late st Contact Info) Description 02/21/2018 Ancillary Orders Virtual Department [address] [place] [address] Aylin Wellington, ANDREW [address] [place] [address] [email or web address] Mass of joint of right hip Social History Tobacco Use Types [...] documented as of this encounter Results * XR HIP 2 VW RIGHT PLUS PELVIS (02/28/2018 4:56 PM EDT) Anatomical Region Laterality Modality Hip Right Radiographic Patti ging 02/28/2018 5:05 PM EDT Impressions 02/28/2018 5:07 PM EDT No mass identified or significant degenerative changes. Further imaging evaluation should be based on clinical concern. POS - [id number] Narrative 02/28/2018 5:07 PM EDT HISTORY: As above. No trauma. COMPARISON: None. RIGHT HIP/PELVIC RADIOGRAPH FINDINGS: 4 views obtained. No acute fracture or malalignment. Bilateral hip joint spurring. No joint space narrowing. No destructive bone lesions or AVN. Pelvic and lower extremity arterial calcified plaque. No soft tissue swelling or mass. Procedure Note Quirino Reed MD - 02/28/2018 HISTORY: As above. No trauma. COMPARISON: None. RIGHT HIP/PELVIC RADIOGRAPH FINDINGS: 4 views obtained. No acute fracture or malalignment. Bilateral hip jointspurring. No joint space narrowing. No destructive bone lesions or AVN.Pelvic and lower extremity arterial calcified plaque. No soft tissueswelling or mass. IMPRESSION: No mass identified or significant degenerative changes. Further imagingevaluation should be based on clinical concern. POS - [id number] December Eliz PA-Silvina IMG XR PELVIS Final Result documented in this encounter Visit Diagnoses Diagnosis Mass of joint of right hip Mass of joint of right hip documented in this encounter Additional Health Concerns Infection Onset Date Last Indicated Resolved Time CoV-Risk 04/29/2020 04/30/2020 04/30/2020 10:3 8 AM EDT CoV-Presumed 04/30/2020 04/30/2020 05/20/2020 1:22 AM EDT documented as of this encounter Care Teams Advice Nurse Relationship Specialty Start Date End Date Rusty Lutz DO PCP - General Internal Medicine 02/28/18 documented as of this encounter Additional Source Comments The information contained in this document represents components of the legal health record. It is not the complete legal health record.[facility]
--- OUTSIDE RECORDS SUMMARY | 2025-08-30 18:01 | XMS_ITS | Clinical Summary ---
Author Organization [facility] Address [address] [address] Phone Care Team Providers Care Senior Director Of [employer] Name Role Phone Rusty Lutz Primary Care Provider [phone] Allergies Active Allergy Reactions Criticality Noted Date Comments Oxycodone-Acetaminophen 04/29/2020 Medications citalopram (CELEXA) 40 MG tablet Take 40 mg by mouth daily. Active omeprazole (PRILOSEC) 20 MG capsule Take 20 mg by mouth daily. Active albuterol 90 mcg/actuation inhaler Inhale 2 puffs into the lungs every 2 (two) hours as needed for wheezing or shortness of breath/dyspnea. 1 Inhaler 0 Active folic acid (FOLVITE) 1 MG tablet [The details of the medication are not available because there are pending changes by a home health clinician.] 30 tablet 0 Active Additional Information Patient not taking.Reported on 05/08/2020 guaiFENesin (MUCINEX) 600 mg ER biphasic tablet Take 1 tablet (600 mg total) by mouth 2 (two) times a day as needed for congestion. 30 tablet 0 Active ipratropium-alb uteroL (COMBIVENT RESPIMAT) 20-100 mcg/actuation Mist Inhale 1 puff into the lungs 4 (four) times a day. 4 g 0 Active nicotine (NICODERM CQ) 21 mg/24 hr [The details of the medication are not available because there are pending changes by a home health clinician.] 30 patch 0 Active Additional Information Patient not taking.Reported on 05/08/2020 predniSONE (DELTASONE) 20 MG tablet Take 2 tablets (40 mg total) by mouth daily. For 3 days then 20 mg daily for 3 days then stop 10 tablet 0 Active vitamins with ferrous fumarate- folic acid 28 mg iron- 800 mcg Tab Take 1 tablet by mouth daily. 30 tablet 0 Active thiamine (VITAMIN B-1) 100 mg Tab tablet Take 1 tablet (100 mg total) by mouth daily. 30 tablet 0 Active dilTIAZem (DILACOR XR) 180 mg 24 hr capsule Take 1 capsule (180 mg total) by mouth daily. 90 capsule 0 Active lactobacillus rhamnosus, GG, (CULTURELLE) 10 billion cell capsule Take 1 capsule by mouth daily. 30 capsule 0 Active folic acid (FOLVITE) 400 MCG tablet Take 400 mcg by mouth daily. 0 Active Active Problems Problem Noted Date Diagnosed Date Acute metabolic encephalopathy 05/03/2020 Assessment & Plan (05/04/2020 11:22 AM EDT): On 05/02, patient exhibited odd behaviors such as urinating into cups and clean axis, with a dirty Kleenex on her breakfast and then ate the breakfast. Appeared more sleepy than previously. No known head trauma. Urinalysis abnormal and urine culture showing gram-negative rods. Ceftriaxone started yesterday and patient has had significant improvement in symptoms overnight. Today is alert and oriented x3, no odd behaviors and affect/conversation is appropriate. I would like to observe her overnight and if feeling well, hopefully discharge tomorrow I will have PT and OT reevaluate, she may benefit from short-term rehab COPD exacerbation 04/30/2020 Unspecified severe protein-calorie malnutrition 04/30/2020 Assessment & Plan (05/02/2020 10:21 AM EDT): Appreciate RD consult, continue supplements Patient quite thin/cachectic appearing CT chest showed no masses or lymphadenopathy, guaiac with brown heme-negative stool Pancytopenia 04/30/2020 Assessment & Plan (05/04/2020 11:19 AM EDT): Hemoglobin improved this morning to 8.5, anemia work-up showed normal iron level, normal TIBC, reticulocyte count of 2.7, labs improved -white blood cell count 4.7, hemoglobin stable at 8.4, MCV is 102, platelet count 229. Pancytopenia may be related to chronic alcohol abuse. No evidence of bleeding during hospitalization, stool guaiac negative B12 and folate normal COPD with acute exacerbation 04/29/2020 Assessment & Plan (05/04/2020 11:18 AM EDT): At home had increasing shortness of breath without cough, fever or chills. SARS-CoV-2 PCR test was negative X 2. Chest x-ray reveals No evidence of acute cardiopulmonary disease. CTPA showed no evidence of PE-d-dimer was high at 1100. COVID antibody test was positive, it was felt that she likely had COVID-19 in December. No evidence of acute COVID infection during hospitalization. Treated for COPD exacerbation with MDI and steroids, feeling significantly improved again today, weaned steroid dose to 40 mg Elevated troponin 04/29/2020 Assessment & Plan (05/03/2020 9:15 AM EDT): She has had episodes with dyspnea on exertion however denies any chest pain. On arrival to the emergency department she underwent troponins which were noted to be 12 and 14. Appreciate cardiology consultation, she will need outpatient follow-up which is being arranged by the assembler semiconductor including nmst (see his consult note), patient without symptoms Tobacco use 04/29/2020 Assessment & Plan (05/04/2020 11:20 AM EDT): Smokes 2 packs/day. Nicotine patch Gastroesophageal reflux disease without esophagi tis 04/29/2020 Essential hypertension 04/29/2020 Assessment & Plan (05/03/2020 9:15 AM EDT): Hyponatremia resolved, patient has been relatively hypotensive which is resolving Lisinopril on hold at dischg time Depression 04/29/2020 Assessment & Plan (04/30/2020 2:18 PM EDT): Alcohol dependence with other alcohol-induced di sorder 04/29/2020 Assessment & Plan (05/04/2020 11:19 AM EDT): Pancytopenia present, may be r/t etoh Patient underwent counseling with the forensic social worker and referred to resources locally, she does indicate that she would like to cut down Alcohol withdrawal syndrome may have contributed to patient's delirium yesterday Social History Tobacco Use Types Packs/Day Years [...] on file Sexual Orientation Not on file Last Filed Vital Signs Vital Sign Reading Time Taken Comments Blood Pressure 134/79 05/06/2023 8:37 PM EDT Pulse 68 05/06/2023 8:37 PM EDT Temperature 36.5 C (97.7 F) 05/06/2023 8:37 PM EDT Respiratory Rate 19 05/06/2023 8:37 PM EDT Oxygen Saturation 96% 05/06/2023 8:37 PM EDT Inhaled Oxygen Concentration - - Weight 33.6 kg (74 lb) 05/29/2020 1:02 PM EDT Height 152.4 cm (5') 04/29/2020 7:18 PM EDT Body Mass Index 14.45 04/29/2020 7:18 PM EDT Plan of Treatment Health Maintenance Due Date Last Done Comments Adult Td,Tdap Booster 1957 BLOOD PRESSURE 1957 LIPID PANEL 1957 DEPRESSION SCREENING 1969 SMOKING Hx and SMOKELESS TOBACCO SCREENING 1970 HEPATITIS C SCREENING 1975 PNEUMOCOCCAL VACCINES (50+ years) (1 of 2 - PCV) 1976 MAMMOGRAM 1997 COLOGUARD 2002 COLONOSCOPY 2002 FOBT 2002 SIGMOIDOSCOPY 2002 VIRTUAL COLONOSCOPY 2002 RSV VACCINE (1 - Risk 50-74 years 1-dose series) 2007 ZOSTER VACCINES (1 of 2) 2007 COLORECTAL CANCER SCREENING 05/02/2021 FIT TEST 05/02/2021 05/02/2020 OSTEOPOROSIS SCREENING INITIAL (ONE-TIME) 2022 INFLUENZA VACCINE (#1) 2025 COVID-19 VACCINE ( season) 2025 09/14/2021, 02/04/2021, 02/04/2021, Additional history exists HEPATITIS A VACCINES Aged Out No long er eligible based on patient's age to complete this topic HIB VACCINES Aged Out No longer eligi ble based on patient's age to complete this topic MENINGOCOCCAL VACCINES (ACWY) Aged Out No longer eligible based on patient's age to complete this topic MENINGOCOCCAL VACCINES (B) Aged Out N o longer eligible based on patient's age to complete this topic Medical Devices Not on file Procedures Procedure Name Priority Date/Time Associated Diagnosis Comments HC BLOOD OCCULT FECAL HGB DETER IA QUAL FECES 1-3 Routine 05/02/2020 8:33 AM EDT from Last 3 Months or Most Recently Relevant to Health Maintenance Results * Fecal immunochemical test x1 (FIT) (05/02/2020 8:33 AM EDT) Immuno Fecal Occult Negative [facility] 05/02/2020 8:33 AM EDT 05/02/2020 12:43 PM EDT us Crystal Alexander MD LAB BODY FLUIDS AND STOOL OR DERABLES Final Result [address] [id number] from Last 3 Months or Most Recently Relevant to Health Maintenance Insurance MEDICARE PART A & B [facility] MEDICARE REPLACEMENT MEDICARE PART A & B MEDICARE REPLACEMENT MEDICARE PART A & B MEDICARE PART A & B MEDICARE PART A & B MEDICARE REPLACEMENT MEDICARE PART A & B MEDICARE PART A & B [id number] [place] [address] MEDICARE REPLACEMENT MEDICARE PART A & B [facility] MEDICARE REPLACEMENT MEDICARE PART A & B [facility] MEDICARE REPLACEMENT Advance Directives For more information, please contact: [phone] (9AM - 5PM [facility], Saturday-Saturday) * Full Code (Confirmed) (Latest Code Status on File) Date Activated Date Inactivated Comments 04/29/2020 7:37 PM Question Answer Comments Code Status Confirmed With: Patient Care Teams Senior Director Of [employer] Relationship Specialty Start Date End Date Rusty Lutz DO PCP - General Internal Medicine 02/28/18 Additional Source Comments The information contained in this document represents components of the legal health record. It is not the complete legal health record.[facility]
--- OUTSIDE RECORDS SUMMARY | 2025-08-30 18:01 | XMS_ITS | Encounter Summary ---
Author Organization [facility] Address [address] [employer] [address] [place] [address] Phone Care Team Providers Care Ruffler Name Role Phone Rusty Lutz Primary Care Provider [phone] Encounter Details Date Type Department Care Team (Latest Contact Info) Description 05/21/2023 Transcribe Orders Virtual Department [address] [place] [address] Karyn Cano PA [address] [facility] [place] [address] [place] [address] Other specified intracranial injury without loss of consciousness, initial encounter (Primary Dx) Social History Tobacco Use Types [...] as of this encounter Visit Diagnoses Diagnosis Other specified intracranial injury without loss of consciousness, initial encounter- Primary documented in this encounter Care Teams Ruffler Relationship Specialty Start Date End Date Rusty Lutz DO [email or web address] PCP - General Internal Medicine 02/28/18 documented as of this encounter Additional Source Comments The information contained in this document represents components of the legal health record. It is not the complete legal health record.[facility]
--- OUTSIDE RECORDS SUMMARY | 2025-08-30 18:01 | XMS_ITS | Encounter Summary ---
Author Organization [facility] Address [address] [facility] [address] [place] [address] Phone Care Team Providers Care Armhole Presser Name Role Phone Cassiusmary aliceRusty DO Primary Care Provider [phone] Reason for Referral * MRI/CAT Scan - Closed Specialty Diagnoses / Procedures Referred By Dayna victoria Referred To Contact Radiology Diagnoses Cerebral aneurysm, nonruptured Procedures MRI Angio Brain Karyn Cano PA [address] [facility] [place] [address] Phone: tel: fax: Referral ID Status Reason Start Date Expiration Date Visits Re quested Visits Authorized [id number] Closed 05/19/2024 05/19/2025 1 1 Encounter Details Date Type Department Care Team (Latest Contact Info) Description 05/19/2024 Transcribe Orders Virtual Department [address] [place] [address] Karyn Cano PA [address] [facility] [place] [address] Cerebral aneurysm, nonruptured (Primary Dx) Social History Tobacco Use Types [...] documented as of this encounter Results * MRA HEAD WITHOUT CONTRAST (06/30/2024 3:29 PM EDT) Anatomical Region Laterality Modality Head Magnetic Resonan ce 06/30/2024 5:10 PM EDT Impressions 06/30/2024 5:17 PM EDT 1. Stable 6 x 4 mm saccular aneurysm at the right MCA bifurcation. 2. 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 3. No hemodynamically significant stenosis and intracranial arteries. Narrative 06/30/2024 5:17 PM EDT MRI ANGIO BRAIN WITHOUT CONTRAST Referring clinician's provided indication for this examination in Epic: Outside Radiology Order; intracranial aneurysm TECHNIQUE: MRI ANGIO BRAIN WITHOUT CONTRAST MRA of the head was performed utilizing ijpj-[id number]-[id number] technique (no gadolinium). Maximal intensity projection 3D angiographic reformatted images were performed. COMPARISON: CT ANGIO HEAD WITH CONTRAST, CT ANGIO NECK WITH CONTRAST FINDINGS: MRA HEAD: Anterior Circulation: The intracranial carotid arteries are unremarkable without hemodynamically significant stenosis or aneurysm formation. There is a 2 mm anteriorly oriented aneurysm of the M1 segment of the right MCA (series 2, image 75), unchanged compared to prior study. Additionally, there is a stable 6 x 4 mm saccular aneurysm at the right MCA bifurcation (series 2, image 63). The right middle cerebral artery is otherwise unremarkable. The left middle cerebral artery, and bilateral anterior cerebral arteries are unremarkable without evidence of hemodynamically significant stenosis or aneurysm formation. The anterior communicating artery is not visualized. Posterior Circulation: Normal. Normal flow within the intracranial vertebral arteries, basilar artery and posterior cerebral arteries. No severe stenosis, occlusion, aneurysm or arteriovenous malformation. Posterior communicating arteries are not visualized. Procedure Note Meka Landrum MD - 06/30/2024 MRI ANGIO BRAIN WITHOUT CONTRAST Referring clinician's provided indication for this examination in Epic:Outside Radiology Order; intracranial aneurysm TECHNIQUE: MRI ANGIO BRAIN WITHOUT CONTRAST MRA of the head was performed utilizing [id number] technique (BRIKAadolinium). Maximal intensity projection 3D angiographic reformattedimages were performed. COMPARISON: CT ANGIO HEAD WITH CONTRAST, CT ANGIO NECK WITH [id number] FINDINGS: MRA HEAD: Anterior Circulation: The intracranial carotid arteries are unremarkablewithout hemodynamically significant stenosis or aneurysm formation. Thereis a 2 mm anteriorly oriented aneurysm of the M1 segment of the right MCA(series 2, image 75), unchanged compared to prior study. Additionally,there is a stable 6 x 4 mm saccular aneurysm at the right MCA bifurcation(series 2, image 63). The right middle cerebral artery is otherwiseunremarkable. The left middle cerebral artery, and bilateral anteriorcerebral arteries are unremarkable without evidence of hemodynamicallysignificant stenosis or aneurysm formation. The anterior communicatingartery is not visualized. Posterior Circulation: Normal. Normal flow within the intracranialvertebral arteries, basilar artery and posterior cerebral arteries. Nosevere stenosis, occlusion, aneurysm or arteriovenous malformation.Posterior communicating arteries are not visualized. IMPRESSION: 1. Stable 6 x 4 mm saccular aneurysm at the right MCA bifurcation. 2. Stable 2 mm anteriorly oriented aneurysm of the M1 segment of theright MCA. 3. No hemodynamically significant stenosis and intracranial arteries. Karyn MATOS [facility] MR HEAD/NECK Final Resu lt documented in this encounter Visit Diagnoses Diagnosis Cerebral aneurysm, nonruptured- Primary Cerebral aneurysm, nonruptured documented in this encounter Care Teams Armhole Presser Relationship Specialty Start Date End Date Rusty Lutz DO [email or web address] PCP - General Internal Medicine 02/28/18 documented as of this encounter Additional Source Comments The information contained in this document represents components of the legal health record. It is not the complete legal health record.[facility]
[2025-08-30 18:34] LABS: MANUAL DIFF FLAG NO
[2025-08-30 19:01] LABS: Hematocrit 39.5 % (37.0-47.0); Hemoglobin 13.6 g/dl (12.0-16.0); Imm Gran Abs Auto 0.04 X10*3/uL (0.00-0.03); Imm Gran Pct Auto 0.4 % (0.0-0.4); Lymphocytes Absolute Auto 2.1 X10*3/uL (1.2-4.9); Mean Corpuscular HGB Conc 34.4 g/dl (31.0-35.0); Mean Corpuscular Hemoglobin 36.0 pg (27.0-33.0); Mean Corpuscular Volume 104.5 fL (80.0-98.0); NRBC Abs Auto 0.000 X10*3/uL (0.0-0.012); NRBC Pct Auto 0.0 /100WBC (0.0-0.2); Platelet Count 332 X10*3/uL (160-400); Red Blood Count 3.78 X10*6/uL (4.20-5.50); White Blood Count 11.1 X10*3/uL (4.8-10.8)
[2025-08-30 19:44] LABS: Alanine Aminotransferase 24 U/L (0-31); Albumin Level 4.7 g/dL (3.5-5.0); Alkaline Phosphatase 85 U/L (39-117); Anion Gap 12 (12-20); Aspartate Amino Transferase 33 U/L (5-31); Blood Urea Nitrogen 18 mg/dL (9-16); Calcium 9.5 mg/dL (8.4-10.2); Carbon Dioxide 24 mmol/L (22-29); Chloride 106 mmol/L (96-108); Cholesterol 203 mg/dL (<200); Estimated Glomerular Filt Rate > 60; HDL Cholesterol 85 mg/dL (>40); Iron 113 mcg/dL (30-160); Percent Iron Saturation 45 % (15-50); Potassium 3.4 mmol/L (3.3-5.1); Sodium 139 mmol/L (135-145); Total Iron Binding Capacity 250 mcg/dL (228-428); Total Protein 7.5 g/dL (6.5-8.0); Triglycerides 97 mg/dL (<150); Unsaturated Iron Binding 137 ug/dL
== END 2025-08-30 14:43 | disposition home or self-care (01) ==
LOC: HO.MANLDS 14:42
PROVIDERS: Visit Provider Physician Assistant
DX: I10 Essential (primary) hypertension (principal); E61.1 Iron deficiency; F17.210 Nicotine dependence, cigarettes, uncomplicated
CPT/HCPCS: 36415; 80053; 80061; 83540; 85025